=== PATIENT | male | born 1975 | race Caucasian/White ===

== ENCOUNTER 2017-11-20 12:53 | Day surgery (SDC) | payer OTHER ==
[2017-11-20] MEDS ORDERED: NS 1,000 ML IV (13:15)
[2017-11-20] MEDS ORDERED: PROPOFOL 200 MG/20 ML VIAL As Ordered (15:29)
[2017-11-20] MEDS ORDERED: LIDOCAINE 2% INJ 100 MG/5 ML SDV (FOR ANES.) As Ordered (15:29)
== END 2017-11-20 16:22 | disposition home or self-care (01) ==
LOC: M OPP 12:53
DX: R13.10 Dysphagia, unspecified (principal); I10 Essential (primary) hypertension; E78.5 Hyperlipidemia, unspecified; E03.9 Hypothyroidism, unspecified; R01.1 Cardiac murmur, unspecified; K21.9 Gastro-esophageal reflux disease without esophagitis; Z87.891 Personal history of nicotine dependence; Z79.899 Other long term (current) drug therapy; Z80.8 Family history of malignant neoplasm of other organs or systems
CPT/HCPCS: 43249